=== PATIENT | male | born 1955 | race Caucasian/White ===

== ENCOUNTER 2023-07-31 18:44 | Emergency (ER) | payer OTHER ==
[2023-07-31 18:57] VITALS: BP 119/75; PULSE 79; RESP 16; TEMP 97.8; BMI 23.1
== END 2023-07-31 19:41 | disposition home or self-care (01) ==
LOC: FER 18:44
DX: S61.210A Laceration without foreign body of right index finger without damage to nail, initial encounter (principal); X58.XXXA Exposure to other specified factors, initial encounter
CPT/HCPCS: 99283-25